=== PATIENT | female | born 1995 | race Caucasian/White ===

== ENCOUNTER 2022-03-01 10:05 | Outpatient (CLI) | payer BC, SELFPAY ==
--- NOTE | 2022-03-01 10:15 | CRLHL7_ITS ---
For Patients: As a result of the Century Cures Act, medical imaging exams and procedure reports are released immediately into your electronic medical record. You may view this report before your referring provider. If you have questions, please contact your health care provider. INDICATION: MORBID OBESITY W/ BMI<40 TECHNIQUE: Real time john scale imaging of the fetus was performed. COMPARISON: 01/11/2022, 01/03/2022 FINDINGS: Sonographic imaging demonstrates a single living intrauterine gestation. Fetus demonstrates a regular cardiac rate of 148 beats per minute. Fetus has a vertex position. The placenta lies anteriorly. Amniotic fluid volume appears normal and there is a single deepest pocket of 4.2 cm. The estimated weight is 2349gm which lies at the 95th %. On the prior OB ultrasound dated 01/03/2022 the estimated weight was at the 65th percentile. BPD 85th percentile. HC 69th percentile. AC greater than 97th percentile. FL 46th percentile. The fetus was active and demonstrated normal breathing movements. There was normal flexion and extension of the trunk and extremities. IMPRESSION: Normal biophysical profile score 8/8. Sonographic gestational age 33 weeks 6 days and sonographic due date 04/13/2022. Sonographic age 13 days ahead of the clinical age. Estimated weight 95th percentile. Abdominal circumference greater than 97th percentile. Dictated by Marcelo Ledbetter MD @ 03/01/2022 11:47:09 AM (Electronically Signed)
== END 2022-03-01 10:06 | disposition home or self-care (01) ==
LOC: US 10:06
PROVIDERS: PCP Family Medicine; Visit Provider Registered Nurse
DX: O99.213 Obesity complicating pregnancy, third trimester (principal); Z3A.33 33 weeks gestation of pregnancy
CPT/HCPCS: 76816; 76819

== ENCOUNTER 2022-03-29 14:44 | Outpatient (CLI) | payer BC, SELFPAY ==
[2022-03-30 13:48] LABS: Strep B DNA Probe POSITIVE (Negative)
== END 2022-03-29 14:45 | disposition home or self-care (01) ==
LOC: NFLDREF 14:44
PROVIDERS: PCP Family Medicine; Visit Provider Obstetrics & Gynecology
DX: O99.213 Obesity complicating pregnancy, third trimester (principal); Z3A.37 37 weeks gestation of pregnancy
CPT/HCPCS: 76816; 76819; 87081; 87185; 87186; 87653

== ENCOUNTER 2022-04-19 05:01 | Inpatient (IN) | payer BC, SELFPAY ==
[2022-04-19] VITALS (21 sets, daily range): BP systolic 77–136; BP diastolic 27–83; PULSE 73–95; RESP 16–18; TEMP 36.7–37; O2SAT 97–100; BMI 51.8
[2022-04-19] MEDS: LACTATED RINGERS 1000 ML 1,000 ML 125 ML IV ×4 (05:49→11:28)
[2022-04-19 05:52] LABS: Hemoglobin* 12.9 gm/dL (12.0-16.0)
[2022-04-19 06:05] LABS: SARS PCR* Negative SARS-CoV-2 (Negative)
--- NOTE | 2022-04-19 07:16 | P.PCN_ITS ---
Procedure Note Time Seen by Provider: 07:17 Date Seen: 04/19/22 Date of procedure: 04/19/22 Will [facility] bill your pro fee for this procedure?: Yes Procedure: Preoperative diagnosis: 26-year-old 3 para 1011 at 39 and 0/7 weeks ad mitted for a scheduled repeat low transverse section. Postoperative diagnosis: Same Procedure: Repeat low-transverse section. Anesthesia: Spinal Surgeon: Milagros Mireles MD Insurance Healthcare Representative: Not applicable Quantitative blood loss: 447 mL IVF: 2000 mL UOP: 50 mL Drain(s): Fletcher to gravity. Specimen: None Findings: A live male infant was delivered from the direct OA position at 7:52 a.m. Apgars were 7 at 1 min, 8 at 5 min, 8 at 10 minutes respectively. weight: 7 lb 14 oz. Nuchal cord(s): Yes: 2 loose nuchal cords were easily reduced prior to delivery of the infant's body at the sterile field.. The placenta was delivered spontaneously and complete at 2:54 a.m. Amniotic fluid: Copious amount of clear fluid.. Normal uterus, fallopian tubes and ovaries were noted. Other findings: Minimal adhesions. There were some adhesions of the omentum to the anterior abdominal wall that were taken down with cautery. Procedure: Magalys was taken to the OR where spinal anesthetic was found be adequate. A Fletcher catheter was placed. The patient was then placed in the dorsal supine position with a leftward tilt. She was then prepped and draped in a normal sterile manner. A Pfannenstiel skin incision was made and carried through sharply to the underlying layer of fascia. Fascia was incised in the midline and this incision carried laterally with Infante scissors. The superior aspect of fascial incision was grasped with Concepcion clamps, tented up, and the rectus muscles dissected off with bipolar cautery. The inferior aspect of the fascial incision was grasped with Concepcion clamps, tented up and again the rectus muscles dissected off with bipolar cautery.. The rectus muscles were in the midline. The peritoneum was entered bluntly. This opening was extended bluntly. An Tae-O self-retaining retractor was placed. A bladder flap was not created. Uterus was incised in a low transverse manner in the midline. This incision carried laterally with blunt pressure on the inferior and superior aspects of the uterine incision. The amniotic sac was ruptured. The infant's head and body were delivered atraumatically. The was shown to the patient and her support person. The umbilical was clamped and cut immediately/after a 30-60 second delay. The infant was then handed to waiting pediatric and nursing staff. The placenta was delivered spontaneously. The uterus was cleared of clots and debris. The uterine incision was re-approximated with the uterus in vivo. The 1st layer using 0-Vicryl in a running, locked manner. The 2nd layer using 0- Monocryl in a running, vertical, imbricating layer. Additional sutures needed for hemostasis: Yes: 2 figure of 8 sutures using 2-0 chromic. Jemma was applied to the uterine incision. Excellent hemostasis was confirmed. The Tae retractor was removed. The rectus muscles were reapproximated using 3-0 Vicryl vertical mattress sutures. The rectus muscles were then closely inspected to verify hemostasis. Hemostasis was obtained with bipolar cautery. The fascia was then reapproximated using 0-Maxon loop in a running manner. The subcutaneous tissue was then irrigated with saline and hemostasis obtained with bipolar cautery. The subcutaneous tissue was reapproximated using 3-0 plain gut interrupted sutures. The skin was reapproximated using 4-0 Monocryl in a running subcu ticular manner. A silver-containing dressing was then applied. The patient tolerated this procedure well. Sponge, lap and instrument counts were correct x2 active to the procedure. Patient was taken to the recovery area in stable condition. The patient received 3 g of IV Ancef prior to skin incision. Surgeon: Milagros Mireles MD
[2022-04-19] MEDS: KETOROLAC 30 MG/ML inj IVP ×3 (08:45→20:53)
--- NOTE | 2022-04-19 08:58 | W.PM.NB ---
Nerve Block Nerve Block Time Seen by Provider: 08:55 Date Seen: 04/19/22 Type of block requested by surgeon for post-operative analgesia: TAP Side: bilateral Time out performed: Yes Verification of patient name: Yes Verification of date of : Yes Site marking: site marked Name of person performing procedure: Wm Continuous monitoring Was continuous monitoring of O2 sat, B/P, sample examiner, recorded every 15 minutes?: Yes Procedure Checklist: sterile prep, needles and gloves Ultrasound guided. Images saved: Yes Medications given in 5ml increments after negative aspiration: Marcaine %: 0.25 mL: 30 Needle gauge: 20 and Exparel mL: 10 Patient tolerated procedure well: Yes Additional comments: Needle noted adjacent to nerve Block Charges Block Charge (with Pro Fee): TAP Bilateral Use of Ultrasound Machine for Block: Yes- US Guidance/pain block
--- NOTE | 2022-04-19 09:09 | W.ANESCHARGE ---
Anesthesia Charges Start Date/Time Anesthesia Start Date: 04/19/22 Anesthesia Start Time: 07:14 Stop Date/Time Anesthesia Stop Date: 04/19/22 Anesthesia Stop Time: 09:04 Summary Emergency: No
--- NOTE | 2022-04-19 09:20 | W.ANESCHARGE ---
Anesthesia Charges Start Date/Time Anesthesia Start Date: 04/19/22 Anesthesia Start Time: 07:14 Stop Date/Time Anesthesia Stop Date: 04/19/22 Anesthesia Stop Time: 09:04 Summary Emergency: No
[2022-04-19] MEDS: DOCUSATE SODIUM 100 MG CAPSULE PO (20:54)
[2022-04-20] MEDS: KETOROLAC 30 MG/ML inj IVP ×3 (02:50→15:05)
[2022-04-20 07:11] LABS: Hemoglobin* 11.3 gm/dL (12.0-16.0)
[2022-04-20 08:46] VITALS: BP 127/83; PULSE 86; RESP 18; TEMP 36.8; O2SAT 97
[2022-04-20] MEDS: SERTRALINE 50 MG TABLET 100 MG PO (08:51)
[2022-04-20] MEDS: DOCUSATE SODIUM 100 MG CAPSULE PO ×2 (08:52→21:05)
[2022-04-20] MEDS: ENOXAPARIN 40 MG/0.4 ML INJ SUBCUT (12:11)
--- NOTE | 2022-04-20 12:39 | PM.OBPNCS1 ---
OB - PN: A/P Assessment and Plan (1) Lactating mother: Status: Acute (2) Status post repeat low transverse section: Problem details: Yarelis George#14oz. 39w0d Status: Acute (3) Morbid obesity with body mass index (BMI) of 40.0 or higher: Status: Acute (4) Generalized anxiety disorder: Status: Acute (5) Depression: Status: Acute Plan Morbidly obese 26yo P2012, POD 1 from RLTCS, recovering appropriately. SCD use, noxaparin daily, and ambulation for 10min QID all recommended; patient verbalized understanding. Continue support; encourage long-term. Sertraline for mood control. Rh positive. Received Tdap. Plan day: 1 Plan: routine postop care Comments: Ambulate with abdominal binder, worn below umbilicus when upright. OB - PN: Subj Subjective Time Seen by Provider: 12:40 Date Seen: 04/20/22 Interval history: Magalys is a 1yo now para 2011 who underwent ERLTCS .. QBL was 447mL; postop hemoglobin down to 11.3. She reports good pain control with ketorolac. Able to void fully. Reports flatus; denies N/V. She has not yet ambulated significantly. Mood is stable on sertraline. She gave to a viable male Ariel who was 39w0d GA; Apgars 7/8. He is latching well. OB - PN: Obj Exam Physical Exam: Vital signs: Temp Pulse Resp BP Pulse Ox O2 Del Method 98.3 F 86 18 127/83 97 04/20/22 08:46 04/20/22 08:46 04/20/22 08:46 04/20/22 08:46 04/20/22 08:46 04/20/22 08:46 Constitutional: Constitutional: no acute distress and morbidly obese Routine Neck Exam: Neck: Present full ROM Routine Respiratory Exam: Comments: Normal respiratory effort. No accessory muscle use, wheeze, or cough. Routine Cardiovascular Exam: Cardiovascular: Present RRR Routine Abdominal Exam: Comments: Obese, soft, appropriately tender. No guarding or rebound. Routine Extremities Exam: Comments: Normal peripheral pulses bilaterally. Nontender. No pitting edema. Routine Neurological Exam: Neurological: Present alert and CN II-XII intact Routine Psychiatric Exam: Psychiatric: Present normal affect and normal thought process Wound Management: Comments: Incision covered with Mepilex silver dressing. Appropriate tenderness. No strikethrough, surrounding ecchymosis or erythema or unsual induration. Urinary Catheter Management: Urethral: Cath placed during this visit: yes Urethral indwelling: No Insertion date: 04/19/22 Insertion time: 07:30 OB - PN: Obj Data Labs Labs: Laboratory Results - last 24 hr 04/20/22 07:05 Hgb 11.3 L
[2022-04-20 15:01] VITALS: BP 126/79; PULSE 91; RESP 18; TEMP 36.6; O2SAT 98
[2022-04-20] MEDS: ACETAMINOPHEN 500 MG TABLET 1000 MG PO (17:51)
[2022-04-20] MEDS: IBUPROFEN 600 MG TABLET PO (21:03)
[2022-04-21 00:35] VITALS: BP 122/76; PULSE 94; RESP 18; TEMP 36.7; O2SAT 98
[2022-04-21] MEDS: ACETAMINOPHEN 500 MG TABLET 1000 MG PO ×2 (00:54→09:19)
[2022-04-21] MEDS: OXYCODONE 5 MG TABLET PO ×3 (03:40→13:40)
[2022-04-21] MEDS: IBUPROFEN 600 MG TABLET PO ×2 (03:40→13:41)
[2022-04-21 08:30] VITALS: BP 101/67; PULSE 93; RESP 16; TEMP 36.7; O2SAT 97
[2022-04-21] MEDS: SERTRALINE 50 MG TABLET 100 MG PO (08:57)
[2022-04-21] MEDS: DOCUSATE SODIUM 100 MG CAPSULE PO (08:57)
--- NOTE | 2022-04-21 15:30 | PM.OBDSCS1 ---
DS: Providers Provider Date Seen: 04/21/22 Date of admission: 04/19/22 05:01 Primary care physician: Stacey Reyes MD Admitting Clinician: Milagros Mireles MD Attending Physician on discharge: Samm Damon MD Date of Discharge: 04/21/22 DS: Diagnosis Discharge Diagnosis (1) Lactating mother: Status: Acute Problem details: Yarelis George#14oz at at 39w0d. Has breast pump at home, aware of consults. (2) Status post repeat low transverse section: Status: Acute Problem details: Ambulating without difficulty, SOB. No LE tenderness, erythema, induration (3) Morbid obesity with body mass index (BMI) of 40.0 or higher: Status: Acute Problem details: . Encourage to continue as long as possible. (4) Generalized anxiety disorder: Status: Acute Problem details: Sertraline (5) Depression: Status: Acute Problem details: Sertraline Exam Const: Vital Signs, click to edit/add: Vital Signs - 24 hr 04/21/22 00:35 04/21/22 08:30 Temperature 98.1 F 98.0 F Pulse Rate [Blood Pressure Cuff] 94 93 Respiratory Rate 18 16 Blood Pressure [Ri ght Arm] 122/76 101/67 Pulse Oximetry 98 97 Oxygen Delivery Me thod Room Air Room Air Documenting provider has reviewed patient's vital signs: yes Common normals: no apparent distress Nutritional appearance: obese Neck & C-Spine: General: normal visual inspection Resp: Common normals: normal respiratory effort and no use of accessory muscles Cardio: Common normals: regular rate Rate: regular rate GI: Common normals: soft to palpation Palpation: soft Extremity: Common normals: normal to inspection and no calf tenderness Neuro: Common normals: CN's II-XII intact bilaterally Psych: Common normals: mental status grossly normal and affect normal OB - DS: Summary Hospital Course Hospital Course: Magalys is a 26 year old now P 2011 who was admitted 04.19.2022 for scheduled repeat section. She gave to viable vigorous male Ariel, who was 39w0d GA. He is latching well. she is doing well. Afebrile, normal VS. Incision covered with Mepilex silver dressing. Pain is controlled with oxycodone. She has started to ambulate. Lochia is moderate, decreasing. Bowel and bladder functions normal. Mood stable. She has a breast pump at home. She is Rh positive; got Tdap. Peripartum Data Procedures: Procedures Operation Date: 04/19/22 07:00 Actual Procedure Side Surgeon p Repeat Section Not Applicable Milagros Mireles MD complications: none Gender: Male Discharge Plan: Home Time Spent with Patient Time attestation: Total time spent providing and/or coordinating discharge services: Discharge Plan Discharge Disposition: Home, Self-Care Date of Admission: 04/19/22 05:01 Attending Provider on Discharge: Samm Damon Primary Care Provider: Stacey Reyes Condition: Stable Anticipated Discharge Date/Time: 04/21/22 00:00 Discharge Medications: New docusate sodium 100 mg Capsule 100 mg PO BID PRNQty: 100 0RF ibuprofen 600 mg Tablet 600 mg PO Q6H PRN (Reason: Pain) 14 Days Qty: 30 0RF oxycodone 5 mg Tablet 5 mg PO 3XD PRN (Reason: 4 OR GREATER ON PAIN SCALE) 7 Days Qty: 21 0RF Lanolin (HPA) 100 % Cream 1 applic topical Q1H PRNQty: 7 0RF Continued magnesium oxide 400 mg (241.3 mg magnesium) tablet 200 mg PO DAILY prenat.vits,arely,[id number] Tablet 1 tab PO QDAY sertraline 100 mg tablet 100 mg PO DAILY acetaminophen [Tylenol Extra Strength] 500 mg tablet 1,000 mg PO Q6H PRN Discontinued calcium carbonate [Calcium Antacid] 200 mg calcium (500 mg) tablet,chewable 200 mg PO BID Discharge Orders: Discharge Order (Routine); Ordered 04/21/22 Ordered By: Samm Damon Patient Education: (DC) Activity Restrictions/Additional Instructions: Discharge instructions were reviewed with the patient including signs and symptoms of infection and home going medications. Lifting Restrictions: 20 pounds for [address] while taking narcotic pain medications. Nothing vaginally for 6 weeks: No tampons or intercourse. Walking and walking up and down stairs are safe. No strenuous, high impact or core exercises for 6 weeks. Off Work or School for [6] weeks. Symptoms to report to doctor: -Bleeding that saturates more than one pad per hour ?-Passing clots larger than the size of a golf ball ?-Pain not relieved by prescribed medication ?-Fever above 100.4 degrees Fahrenheit ?-A foul vaginal odor ?-Difficulty in emotions, mood and functions ?-Thoughts of hurting yourself and/or ?-Painful, reddened area in your breast ?-Any drainage, redness or tenderness in your IV/epidural site ?-Severe headache that doesn't improve after taking medications ?-Changes in vision, including temporary loss of vision, blurred vision, and/or light sensitivity ?-Upper abdominal pain (usually under ribs on the right side) ?-Decrease in urination or painful, frequent urinating ?-Chest pain ?-Shortness of breath ?-Tenderness or pain with redness and/swelling in the calf(s) of your leg Dressing removal and incision check approximately 1 week after delivery Optional 2 week visit: Review feeding concerns, screen for anxiety/depression and discuss contraceptive options. Six week visit to do a physical exam. consultation services are available to all mothers and babies for the first year after delivery.? To make an appointment, please call [phone]. Activity Level: Activity as Tolerated Discharge Diet: High Fiber Follow Up Appointments: [facility] [Provider Group] Stacey Reyes MD [Primary Care Provider] - Forms: MyHealth Info Instructions
== END 2022-04-21 16:00 | disposition home or self-care (01) | DRG 540 ==
PROVIDERS: Admitting Provider Obstetrics & Gynecology; PCP Family Medicine; Visit Provider Obstetrics & Gynecology
PROC: 10D00Z1 Extraction of Products of Conception, Low, Open Approach (ICD-10-PCS; CPT 59514; principal; 2022-04-19 07:00)
DX: O34.211 Maternal care for low transverse scar from previous cesarean delivery (principal); O99.214 Obesity complicating childbirth; E66.01 Morbid (severe) obesity due to excess calories; O99.344 Other mental disorders complicating childbirth; F41.1 Generalized anxiety disorder; F32.A Depression, unspecified; Z3A.39 39 weeks gestation of pregnancy; Z37.0 Single live birth
CPT/HCPCS: 01961; 36415; 64488; 76942; 85018; 86850; 86900; 86901; 87635; A9270; C9290; J1650; J1885; J2274; J2370; J2405; J2590; J3490; J7120

== ENCOUNTER 2022-04-24 14:26 | Outpatient (CLI) | payer BC, SELFPAY ==
--- NOTE | 2022-04-26 13:25 | W.PM.LAC.MC ---
Consult Note - Mom Date of Visit Date of visit: 04/24/22 strategic sourcing consultant: Dalia Jacobo Visit Code: Visit Patient's Information Phone number: [phone] : 3 Para: 2 Allergies Penicillin Allergy (Intermediate, Uncoded 04/25/22 13:18) Hives Mother's Medical History: Medical History (Updated 04/25/22 @ 14:27 by Milagros Mireles MD) depression Delivery Information Delivery type: Repeat Section Weeks Gestation: 39 0/7 Gestational Age: AGA Weight: 3.57 kg Discharge Weight: 3.274 kg Baby's Information Baby's Age at Visit: 5 days Baby's Provider or Clinic: Dr. Levine Jaundice: Yes (TSB = 13.8 on 04/23/22) Reason for Consult Reason for Consult: concern for slow weight gain, latching Past Experience Past Experience: Yes (nursed her first child about 1.5 months, had difficulty with supply) Current Frequency of Day Feedings: every three hours around the clock Both Breasts: Yes Suck: strong Latch: fairly wide Length of Time: 15 - 20 minutes/side Pumping Pumping: Yes (started pumping on 04/23 after NB appointment) Quantity Pumped: about .5 oz total each time Supplementing EMB Supplement: Yes (POC have given 2 two oz bottles since D/C (one before NB visit, one after)) Formula Supplement: No Baby Elimination Number of Wet Diapers a Day: 5 - 6 Number of BM a Day: 5 - 6; beginning to look yellow and seedy Breast/Nipple Condition Breast Information: WNL Engorgement: No Maternal Nipple Condition - Left: Common Nipple Maternal Nipple Condition - Right: Common Nipple Sore Nipples: No Onsite Pre-Feed weight: 3.224 kg Post-Feed weight: 3.266 kg Milk Transferred (mL): 42 Pre-Nursing Left Nipple: Within Normal Limits Pre-Nursing Right Nipple: Within Normal Limits Post-Nursing Left Nipple: Within Normal Limits Post-Nursing Right Nipple: Within Normal Limits Assessments/Interventions Assessments/Interventions: Met with mom and this now 5 day old ex- term AGA baby for a consult.? Mom reports he was seen for his NB visit on 04/23 and was 10% below BW.? Mom feels her milk came in late on 04/21 but she's not sure he's latching on correctly.? Baby is nursing every three hours around the clock for 15 - 20 minutes/side.? Mom started pumping after feedings on 04/23 with a Zomie pump and states she gets at most .5 oz total each time.? POC have given baby two 2 oz bottles of EBM since D/C. Breasts are large but WNL- symmetrical with rounded lower quadrants; mom reports positive breast changes during .? Nipples are everted and don't flatten or retract with compression; some damage noted in the center of both nipples which mom states is getting better.? Mom reports still struggling with carpel tunnel; wears braces when she's not nursing. Baby hasn't really gained or lost any weight since his visit on 04/23 and is still 10% below BW on DOL 5.? He is jaundiced to his abdomen, but the TSB on 04/23 = 13.8.? POC deny any caput/cephalohematoma or trauma at delivery.? State baby has equal ROM when turning his head and moving his extremities.? His palate is WNL, upper frenulum may be a little tight but the lower frenulum is normal.? He has a fairly strong suck on a finger and the tongue easily extends past the gum line; also has good lateral movement. Mom with large breasts and the nipple tends to point downward.? With some assistance she was able to latch baby in the cross cradle hold on the left.? We reviewed the C hold and how to point her nipple to baby's nose, then bring him quickly to her when he opened wide.? She reported a deeper latch than she had been getting at home and stated it was more comfortable.? She had more trouble on the right side (that nipple is a little smaller and she's not as comfortable supporting baby in her left hand). ? Baby nursed a total of about 45 minutes going back and forth to help keep him awake and transferred 42 ml.? Mom's pump was then reviewed and it was suggested she order the smaller flanges. Plan: 1. Continue to nurse baby every 2 - 3 hours offering both sides using the ideas above to help him get and maintain a wide latch.? Work to keep him awake and actively nursing. 2. Pump for 15 - 20 minutes after daytime feedings.? 3. Supplement baby with whatever she pumps. 4. F/U for a weight and circumcision visit on 04/26 where this feeding plan can be re-evaluated.? 5. Will f/u by phone on 05/01 to see how things are going (could suggest using her old Spectra if pumping is still necessary and she doesn't see a good supply with the Zomie). Meds Home Medications and Allergies Home Medications Medication Instructions Recorded Confirmed Type prenat.vits,arely,bjp-pcar-yilvg 1 tab PO QDAY 02/14/22 04/25/22 History acetaminophen 500 mg tablet 1,000 mg PO Q6H PRN 03/22/22 04/25/22 History (Tylenol Extra Strength) Allergies Allergy/AdvReac Type Severity Reaction Status Date / Time Penicillin Allergy Intermediate Hives Uncoded 04/25/22 13:18
== END 2022-04-24 14:27 | disposition home or self-care (01) ==
PROVIDERS: PCP Family Medicine; Visit Provider Registered Nurse
DX: Z39.1 Encounter for care and examination of lactating mother (principal)
CPT/HCPCS: 99211

== ENCOUNTER 2025-06-01 12:12 | Outpatient (CLI) | payer BC, SELFPAY ==
[2025-06-01 23:03] LABS: Chlamydia DNA Amplified* NOT DETECTED (No Detected); GC DNA Amplified* NOT DETECTED (No Detected)
[2025-06-04 11:53] LABS: HPV Source Vaginal
[2025-06-07 09:44] LABS: Pap Test Digital Imaging Done
== END 2025-06-01 12:13 | disposition home or self-care (01) ==
PROVIDERS: PCP Physician Assistant Medical; Visit Provider Physician Assistant Medical
DX: Z00.00 Encounter for general adult medical examination without abnormal findings (principal); F32.A Depression, unspecified
CPT/HCPCS: 80061; 82306; 84443; 87491; 87591; 87624; 87625; 88141; 88142; 88175